=== PATIENT | male | born 1985 | race African-American/Black ===

== ENCOUNTER 2016-08-26 11:01 | Emergency (ER) | payer BC ==
[2016-08-26 12:07] VITALS: BP 140/61
--- NOTE | 2016-08-26 12:18 | UC ---
Skin Complaint HPI - HPI Summary HPI Summary: Pt presents with c/o of "ingrown hair" on posterior medial right calf. Pt noticed a "bump" and used tweezers to pull ingrown hair out and stated that blood an pus came out after using tweezers on the "bump" ~ 2 days ago.Pt now states that area surrounding "bump" has increased in tenderness and "wheeler" when he walks. - History of Current Complaint Chief Complaint: UCSkin Time Seen by Provider: 08/26/16 12:10 Stated Complaint: RIGHT LEG SKIN COMPLAINT Hx Obtained From: Patient Onset/Duration: Gradual Onset, Lasting Days Skin Exposure Onset/Duration: Days Ago Timing: Constant Onset Severity: Mild Current Severity: Mild Location: Discrete - right medial, posterior calf Character: Raised, Painful Aggravating: Touch Associated Signs & Symptoms: Positive: Tenderness - Allergy/Home Medications Allergies/Adverse Reactions: Allergies Allergy/AdvReac Type Severity Reaction Status Date / Time Shellfish Allergy Allergy Hives/Diff. Verified 08/26/16 12:23 Breathing/I tching Review of Systems Constitutional: Negative Skin: Other - tender "bump", possible ingrown hair Eyes: Negative ENT: Negative Respiratory: Negative Cardiovascular: Negative Gastrointestinal: Negative Genitourinary: Negative Motor: Negative Neurovascular: Negative Musculoskeletal: Calf Tenderness - with ambulation and at site of "bump" Neurological: Negative Psychological: Negative All Other Systems Reviewed And Are Negative: Yes PMH/Surg Hx/FS Hx/Imm Hx Previously Healthy: Yes - Surgical History Surgical History: Yes Surgery Procedure, Year, and Place: right acl repair 11/11 - Family History Known Family History: Positive: Other - psoitive for FMH for abrasion - Social History Alcohol Use: Weekly Alcohol Amount: 1 drink Substance Use Type: Marijuana Substance Use Comment - Amount & Last Used: weekly Smoking Status (MU): Never Smoked Tobacco Physical Exam Triage Information Reviewed: Yes Appearance: Well-Appearing Vital Signs: Initial Vital Signs Temp 98 F 08/26/16 11:59 Pulse 84 08/26/16 11:59 Resp 14 08/26/16 11:59 BP 140/61 08/26/16 11:59 Pulse Ox 100 08/26/16 11:59 Vital Signs Reviewed: Yes Eye Exam: Normal Neck exam: Normal Respiratory Exam: Normal Cardiovascular Exam: Normal Musculoskeletal Exam: Normal Neurological Exam: Normal Psychological Exam: Normal Skin Exam: Other - right: posterior medial calfd:tender palpable, fluctant lump ~ 2-3 cm in diameter. NO drainage, non erythematous. right upper thigh: additional smaller ~ 5mm -1 cm areas no drainage, non erythematous. Course/Dx - Course Course Of Treatment: I discussed with the pt the need to monitor for wqorsening infection, the need to place warm pack s on the affefdted areas tsake the oral antibiotic and follow up with the surgeon of request by the pt. Pt verbalized understanding and agreed to plan of care. - Differential Diagnoses - Skin Complaint Differential Diagnoses: Abscess, MRSA - Diagnoses Provider Diagnoses: abscess Discharge - Discharge Plan Condition: Stable Disposition: HOME Prescriptions: Cephalexin CAP* [Keflex 500 CAP*] 500 mg PO TID #21 cap Patient Education Materials: Abscess (ED) Referrals: [facility] [Outside] [place] [Medical Doctor] - Additional Instructions: Please follow up with your PCP and the referral to the surgeon provided to you.
== END 2016-08-26 12:47 | disposition home or self-care (01) ==
LOC: UCCORT 11:01
DX: L02.415 Cutaneous abscess of right lower limb (principal)
CPT/HCPCS: 99212; G0463

== ENCOUNTER 2017-06-26 10:46 | Emergency (ER) | payer BC ==
[2017-06-26 12:03] VITALS: BP 123/62
[2017-06-26] MEDS ORDERED: Ibuprofen ADULT LIQ* 600 MG/30 ML UDC PO ONE (12:25)
--- NOTE | 2017-06-26 12:25 | UC ---
General HPI - HPI Summary HPI Summary: pt fell playing basketball yesterday. he injured his L wrist and ankle. has pain and swelling to both. - History of Current Complaint Chief Complaint: UCUpperExtremity Stated Complaint: LEFT ANKLE/WRIST INJURY Time Seen by Provider: 06/26/17 12:19 Hx Obtained From: Patient Onset/Duration: Sudden Onset Timing: Constant Pain Intensity: 8 Character: aches, sore Associated Signs & Symptoms: Negative: Fever - Allergy/Home Medications Allergies/Adverse Reactions: Allergies Allergy/AdvReac Type Severity Reaction Status Date / Time shellfish derived Allergy Hives/Diff. Verified 06/26/17 11:51 Breathing/I tching Home Medications: Home Medications Ibuprofen TAB* [Motrin TAB* 600 MG] 600 mg PO ONCE PRN 06/26/17 [History Confirmed 06/26/17] PMH/Surg Hx/FS Hx/Imm Hx Previously Healthy: Yes - Surgical History Surgical History: Yes Surgery Procedure, Year, and Place: right acl repair 11/11 - Family History Known Family History: Positive: None, Other - psoitive for FMH for abrasion - Social History Occupation: Employed Full-time Alcohol Use: Rare Alcohol Amount: 1 drink Substance Use Type: Marijuana Substance Use Comment - Amount & Last Used: 4 weeks Smoking Status (MU): Never Smoked Tobacco - Immunization History Vaccination Up to Date: Yes Review of Systems Constitutional: Negative Skin: Negative Eyes: Negative ENT: Negative Respiratory: Negative Cardiovascular: Negative Gastrointestinal: Negative Genitourinary: Negative Motor: Negative Neurovascular: Negative Musculoskeletal: Other: - pain/swelling L wrist/ankle Neurological: Negative Psychological: Negative Is Patient Immunocompromised?: No All Other Systems Reviewed And Are Negative: Yes Physical Exam Triage Information Reviewed: Yes Appearance: Well-Appearing Vital Signs: Initial Vital Signs Temp 98.4 F 06/26/17 11:55 Pulse 66 06/26/17 11:55 Resp 20 06/26/17 11:55 BP 123/62 06/26/17 11:55 Pulse Ox 100 06/26/17 11:55 Vital Signs Reviewed: Yes Eyes: Positive: Conjunctiva Clear ENT: Positive: Normal ENT inspection Neck: Positive: Supple, Nontender Respiratory: Positive: Lungs clear, Normal breath sounds Cardiovascular: Positive: RRR, No Murmur Abdomen Description: Positive: Nontender, No Organomegaly, Soft Bowel Sounds: Positive: Present Musculoskeletal: Positive: Other: - LUE= shoulder, elbow hand are atraumatic. L wrist with mild dorsal swelling and tenderness, Snuff box is not tender. Hand has full s/v/m function. LLE hip, knee, achilles and foot are atrumatic. Lateral ankle with mild swelling and tenderness. Foot has full s/v/m function. Diagnostics - Radiology No standard instances Xray Interpretation: Positive (See Comments) - sts L ankle, no fx. L wrist distal radius fx. Radiology Interpretation Completed By: Radiologist Course/Dx - Course Course Of Treatment: no fx L ankle, will tx for sprain. L distal radius fx, splint. ortho f/u. - Differential Dx - Multi-Symptom Provider Diagnoses: Sprain L ankle. Fracture L wrist Discharge - Discharge Plan Condition: Stable Disposition: HOME Patient Education Materials: Ankle Sprain (ED), Wrist Fracture in Adults (ED) Forms: *Work Release Referrals: Andrea Sam MD [Medical Doctor] - As Soon As Possible Additional Instructions: SPLINT LEFT ANKLE, MAY REMOVE FOR BED AND SPLINT LEFT WRIST AT ALL TIMES UNTIL ORTHOPEDIC FOLLOW UP.
--- NOTE | 2017-06-26 12:48 | RAD ---
HISTORY: Fall, wrist pain COMPARISONS: None VIEWS: 3, Frontal, lateral, and oblique views of the left wrist FINDINGS: BONE DENSITY: Normal. BONES: There is longitudinally oriented nondisplaced fracture of the medial (ulnar) aspect of the distal radial metaphysis with articular extension. JOINTS: There is no arthropathy. ALIGNMENT: There is no dislocation. SOFT TISSUES: Unremarkable. OTHER FINDINGS: None. IMPRESSION: NONDISPLACED FRACTURE OF THE DISTAL RADIAL METAPHYSIS.
--- NOTE | 2017-06-26 12:49 | RAD ---
INDICATION: LEFT ankle pain post fall yesterday. Comparison: No relevant prior exams available on the [facility] for comparison. Technique: AP, lateral, and mortise views LEFT ankle. Report: Negative for fracture. Normal articular alignment. Small talocrural joint effusion as well as mild osteophytosis. Os trigonum accessory ossicle. Mild to moderate soft tissue swelling most prominent over the lateral malleolus. IMPRESSION: Soft tissue swelling most prominent over the lateral malleolus and small talocrural joint effusion without evidence for fracture or malalignment. Mild osteoarthritis.
== END 2017-06-26 13:31 | disposition home or self-care (01) ==
LOC: UCCORT 10:46
DX: S93.402A Sprain of unspecified ligament of left ankle, initial encounter (principal); S62.102A Fracture of unspecified carpal bone, left wrist, initial encounter for closed fracture; W19.XXXA Unspecified fall, initial encounter; Y93.67 Activity, basketball; Y92.9 Unspecified place or not applicable
CPT/HCPCS: 99213; A9270-GY; G0463

== ENCOUNTER 2018-06-19 08:27 | Emergency (ER) | payer BC ==
[2018-06-19 08:40] VITALS: BP 136/89
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
== END 2018-06-19 09:20 | disposition home or self-care (01) ==
LOC: UCCORT 08:27
DX: J32.9 Chronic sinusitis, unspecified (principal); J18.9 Pneumonia, unspecified organism; Z91.013 Allergy to seafood
CPT/HCPCS: 71046; 99212; G0463

== ENCOUNTER 2018-07-28 08:14 | Emergency (ER) | payer BC ==
--- NOTE | 2018-07-28 08:35 | UC ---
Ear Complaint HPI - HPI Summary HPI Summary: 33-year-old male presents with 2 week history of nasal congestion and sinus pressure. States over the last 3-4 days has started developing right ear pain and fullness. Denies fever, chills, ear drainage, tinnitus, vertigo, sore throat, cough, chest pain, or shortness of breath. - History of Current Complaint Stated Complaint: RIGHT EAR CONCERN, BODY ACHES Time Seen by Provider: 07/28/18 08:33 Hx Obtained From: Patient - Allergies/Home Medications Allergies/Adverse Reactions: Allergies Allergy/AdvReac Type Severity Reaction Status Date / Time shellfish derived Allergy Hives/Diff. Verified 07/28/18 08:33 Breathing/I tching PMH/Surg Hx/FS Hx/Imm Hx Previously Healthy: Yes - Denies significant PMH - Surgical History Surgical History: Yes Surgery Procedure, Year, and Place: right acl repair 11/11 - Family History Known Family History: Positive: None, Other - psoitive for FMH for abrasion - Social History Occupation: Employed Full-time Lives: Alone Alcohol Use: Rare Alcohol Amount: 1 drink Substance Use Type: Marijuana Substance Use Comment - Amount & Last Used: rarely Smoking Status (MU): Never Smoked Tobacco - Immunization History Vaccination Up to Date: Yes Review of Systems All Other Systems Reviewed And Are Negative: Yes Constitutional: Negative: Fever, Chills Skin: Negative: Rash Eyes: Negative: Drainage, Eye Redness ENT: Positive: Ear Ache, Nasal Discharge, Sinus Congestion, Sinus Pain/ Tenderness. Negative: Sore Throat Respiratory: Negative: Shortness Of Breath, Cough Cardiovascular: Negative: Palpitations, Chest Pain Gastrointestinal: Negative: Abdominal Pain, Vomiting, Diarrhea, Nausea Genitourinary: Positive: Negative Musculoskeletal: Positive: Negative Neurological: Positive: Negative Is Patient Immunocompromised?: No Physical Exam - Summary Physical Exam Summary: GENERAL APPEARANCE: Well developed, well nourished, alert and cooperative, and appears to be in no acute distress. EYES: Conjunctiva clear. No drainage. Vision is grossly intact. EARS: External auditory canals clear, right TM opaque with good cone of light, left TM dull without erythema, hearing grossly intact. NOSE: Moderate nasal congestion. No nasal discharge. Maxillary sinus tenderness. THROAT: Mild pharyngeal erythema with cobblestoning. No tonsilar inflammation, swelling, exudate, or lesions. Uvula midline. Oral cavity normal. Teeth and gingiva in good general condition. NECK: Neck supple, non-tender without lymphadenopathy. CARDIAC: Normal S1 and S2. No S3, S4 or murmurs. Rhythm is regular. There is no peripheral edema, cyanosis or pallor. Extremities are warm and well perfused. Capillary refill is less than 2 seconds. Peripheral pulses intact. LUNGS: Clear to auscultation without rales, rhonchi, wheezing or diminished breath sounds. ABDOMEN: Positive bowel sounds. Soft, nondistended, nontender. No guarding or rebound. No masses or hepatosplenomegally. MUSKULOSKELETAL: ROM intact to all extremities. No joint erythema or tenderness. Normal muscular development. Normal gait. SKIN: Skin normal color, texture and turgor with no lesions or eruptions. Triage Information Reviewed: Yes Vital Signs Reviewed: Yes Ear Complaint Course/Dx - Course Course Of Treatment: 33-year-old male presents with 2 week history of nasal congestion and sinus pressure. States over the last 3-4 days has started developing right ear pain and fullness. Denies fever, chills, ear drainage, tinnitus, vertigo, sore throat, cough, chest pain, or shortness of breath. Afebrile. Vital signs stable. Exam was remarkable for moderate nasal congestion, maxillary sinus tenderness, and mild pharyngeal erythema with cobblestoning. Considering the duration of his symptoms will treat for acute sinusitis with serous otitis of the right ear. He is to start Augmentin 875 mg twice a day 10 days as well as symptomatic treatment for his sinusitis including saline rinses, fluticasone nasal spray, and [id number] decongestant. He is to return here or follow up with his primary care provider in 7 days if symptoms do not improve. Anticipatory guidance and warning symptoms reviewed with patient. Verbalizes understanding and agrees with plan of care. - Differential Dx/Diagnosis Differential Diagnosis/HQI/PQRI: Otitis Externa, Otitis Media, URI, Other - sinusitis Provider Diagnosis: Acute sinusitis, Right serous otitis media Discharge - Sign-Out/Discharge Documenting (check all that apply): Patient Departure All imaging exams completed and their final reports reviewed: No Studies - Discharge Plan Condition: Stable Disposition: HOME Prescriptions: Amoxicillin/Clavulanate TAB* [Augmentin TAB 875*] 875 mg PO BID #20 tab Fluticasone NASAL SPRAY 50MCG* [Flonase NASAL SPRAY 50MCG*] 2 spray BOTH NARES DAILY #1 btl Patient Education Materials: Sinusitis (ED), Serous Otitis Media (ED) Referrals: No Primary Care Phys,NOPCP [Primary Care Provider] - Additional Instructions: Your history and exam are consistent with a sinus infection. Considering the duration of your symptoms we will treat you with an antibiotic. Take Augmentin 1 tab twice a day for 10 days. Take with food to avoid upset stomach. Be sure to finish the entire course even if feeling better. Drink plenty of fluids to avoid dehydration especially if you are running any fever. Use a saline rinse kit such as Neti Pot or NeilMed at least twice a day to help thin secretions and promote drainage of the sinuses. Use fluticasone (Flonase) nasal spray 2 sprays each nostril once daily. Use an over the counter decongestant such as Sudafed according to directions to help with congestion. Take over the counter acetaminophen (Tylenol) or ibuprofen (Advil, Motrin) according to directions as needed for pain or fever. Return here or follow up with your primary care provider in 7 days if symptoms persist. Seek immediate medical attention in the emergency room if you have fever greater than 100.5 F despite taking acetaminophen or ibuprofen, have chest pain , difficulty breathing, are unable to swallow, or have any worsening of symptoms. - Billing Disposition and Condition Condition: STABLE Disposition: Home
[2018-07-28 08:39] VITALS: BP 128/66
== END 2018-07-28 09:05 | disposition home or self-care (01) ==
LOC: UCCORT 08:14
DX: J01.90 Acute sinusitis, unspecified (principal); H65.01 Acute serous otitis media, right ear; Z91.013 Allergy to seafood
CPT/HCPCS: 99212; G0463

== ENCOUNTER 2019-06-30 13:42 | Emergency (ER) | payer BC ==
[2019-06-30 13:53] VITALS: BP 142/60
--- NOTE | 2019-06-30 14:14 | UC ---
Respiratory Complaint HPI - HPI Summary HPI Summary: cough x 2 weeks cough is dry , worse with deep breathing, better with rest no sore throat, no nasal congestion , mild pnd no fever, no chills , no wheezing or sob - History of Current Complaint Chief Complaint: UCGeneralIllness Stated Complaint: COUGH Time Seen by Provider: 06/30/19 13:57 Hx Obtained From: Patient Onset/Duration: Gradual Onset, Lasting Weeks - 2, Still Present Severity Initially: Moderate Severity Currently: Moderate Pain Intensity: 0 Character: Cough: Nonproductive Aggravating Factors: Exertion, Deep Breaths Alleviating Factors: Nothing Associated Signs And Symptoms: Positive: Nasal Congestion. Negative: Dyspnea, Fever, Chills, Pleuritic Chest Pain, Wheezing, Hemoptysis, Dizziness, Calf Pain , Calf Swelling - Allergies/Home Medications Allergies/Adverse Reactions: Allergies Allergy/AdvReac Type Severity Reaction Status Date / Time shellfish derived Allergy Hives/Diff. Verified 06/30/19 13:52 Breathing/I tching Home Medications: Home Medications Benzonatate CAP* [Tessalon 100 MG CAP*] 100 mg PO TID PRN #21 cap 06/30/19 [Rx] PMH/Surg Hx/FS Hx/Imm Hx Previously Healthy: Yes - Surgical History Surgical History: Yes Surgery Procedure, Year, and Place: right acl repair 11/11 - Family History Known Family History: Positive: None, Other - psoitive for FMH for abrasion, Non -Contributory - Social History Alcohol Use: Rare Alcohol Amount: 1 drink Substance Use Type: Marijuana Substance Use Comment - Amount & Last Used: rarely Smoking Status (MU): Never Smoked Tobacco - Immunization History Vaccination Up to Date: Yes Review of Systems All Other Systems Reviewed And Are Negative: Yes Constitutional: Positive: Negative Skin: Positive: Negative Eyes: Positive: Negative ENT: Positive: Negative Respiratory: Positive: Cough Is Patient Immunocompromised?: No Physical Exam Triage Information Reviewed: Yes Appearance: Well-Appearing, No Pain Distress, Well-Nourished Vital Signs: Initial Vital Signs Temp 98.1 F 06/30/19 13:47 Pulse 61 06/30/19 13:47 Resp 14 06/30/19 13:47 BP 142/60 06/30/19 13:47 Pulse Ox 100 06/30/19 13:47 Vital Signs Reviewed: Yes Eye Exam: Normal Eyes: Positive: Conjunctiva Clear ENT: Positive: Normal ENT inspection, Hearing grossly normal, Pharynx normal Neck: Positive: Supple, Nontender, No Lymphadenopathy Respiratory: Positive: Chest non-tender, Lungs clear, Normal breath sounds Cardiovascular: Positive: RRR, No Murmur, Pulses Normal Skin Exam: Normal Respiratory Course/Dx - Differential Dx/Diagnosis Provider Diagnosis: Viral bronchitis Discharge ED - Sign-Out/Discharge Documenting (check all that apply): Patient Departure All imaging exams completed and their final reports reviewed: No Studies - Discharge Plan Condition: Stable Disposition: HOME Prescriptions: Benzonatate CAP* [Tessalon 100 MG CAP*] 100 mg PO TID PRN #21 cap PRN Reason: Cough Patient Education Materials: Acute Bronchitis (ED) Referrals: Norma Leavitt MD [Primary Care Provider] - If Needed Additional Instructions: viral bronchitis, no need for antibiotics cont. with symptomatic treatment - Billing Disposition and Condition Condition: STABLE Disposition: Home
== END 2019-06-30 14:17 | disposition home or self-care (01) ==
LOC: UCCORT 13:42
DX: J20.8 Acute bronchitis due to other specified organisms (principal); Z91.013 Allergy to seafood
CPT/HCPCS: 99212; G0463